=== PATIENT | female | born 2000 | race African-American/Black ===

== ENCOUNTER 2022-06-19 14:35 | Outpatient (CLI) | payer OTHER | END 2022-06-19 14:36 | disposition home or self-care (01) | LOC: NAV RAD 14:35 | PROVIDERS: ATTEND Family Medicine | DX: Z02.71 Encounter for disability determination (principal); D57.1 Sickle-cell disease without crisis; Z98.1 Arthrodesis status; M41.9 Scoliosis, unspecified | CPT/HCPCS: 72072 ==